=== PATIENT | male | born 2000 | race American Indian/Alaskan Native ===

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

== ENCOUNTER 2019-02-02 22:51 | Emergency (ER) | payer MEDICAID ==
[2019-02-02 23:00] VITALS: BP 136/92
--- NOTE | 2019-02-02 23:20 | EDM.PDOC ---
ED HPI GENERAL MEDICAL PROBLEM - General Chief Complaint: ENT Problem Stated Complaint: THROAT PROBLEMS [id number] Time Seen by Provider: 02/02/19 23:00 Source of Information: Reports: Patient History Limitations: Reports: No Limitations - History of Present Illness INITIAL COMMENTS - FREE TEXT/NARRATIVE: This 18 yo male patient reports to the ED with a sore throat. The patient reports he woke up 2 hours prior to coming to the ED with pain in his throat. the patient reports he is currently on Doxycycline for an abscess (started on 01/27/19). Onset: Today Onset Date: 02/02/19 Onset Time: 21:00 Duration: Constant, Getting Worse Location: Reports: Neck Quality: Reports: Ache, Burning, Sharp, Stabbing Severity: Severe Improves with: Reports: None Worsens with: Reports: None Associated Symptoms: Reports: No Other Symptoms Throat Pain Score (Numeric/FACES): 9 - Related Data Allergies Allergy/AdvReac Type Severity Reaction Status Date / Time No Known Allergies Allergy Verified 02/02/19 22:57 Home Meds: Home Meds Penicillin V Potassium 500 mg PO DAILY 11/06/18 [History] methylPREDNISolone [Methylprednisolone] 4 mg PO DAILY 11/06/18 [History] Past Medical History - Past Health History Medical/Surgical History: Denies Medical/Surgical History HEENT History: Reports: Impaired Vision Other HEENT History: frequent tolsilitis, ENT referral Cardiovascular History: Reports: None Other Respiratory History: collapsed lung at Gastrointestinal History: Reports: None Genitourinary History: Reports: None Other Musculoskeletal History: fracture to right hand Neurological History: Reports: Other (See Below) Psychiatric History: Reports: Addiction, Anxiety, Emotional Problems Endocrine/Metabolic History: Reports: None Hematologic History: Reports: None Immunologic History: Reports: None Oncologic (Cancer) History: Reports: None Dermatologic History: Reports: None - Infectious Disease History Infectious Disease History: Reports: None - Past Surgical History Head Surgeries/Procedures: Reports: None Social & Family History - Family History Family Medical History: Noncontributory - Caffeine Use Caffeine Use: Reports: Coffee, Soda - Living Situation & Occupation Living situation: Reports: with Family ED ROS ENT - Review of Systems Review Of Systems: ROS reveals no pertinent complaints other than HPI. ED EXAM, ENT - Physical Exam Exam: Not Obtained Exam Limited By: No Limitations General Appearance: Alert, WD/WN, Moderate Distress Eye Exam: Bilateral Eye: EOMI, Normal Inspection, PERRL Ears: Normal External Exam, Normal Canal, Hearing Grossly Normal, Normal TMs Nose: Normal Inspection, Normal Mucousa, No Blood Mouth/Throat: Tonsillar Swelling Head: Atraumatic, Normocephalic Neck: Normal Inspection, Supple, Non-Tender, Full Range of Motion Respiratory/Chest: No Respiratory Distress, Lungs Clear, Normal Breath Sounds, No Accessory Muscle Use, Chest Non-Tender Cardiovascular: Normal Peripheral Pulses, Regular Rate, Rhythm, No Edema, No Gallop, No JVD, No Murmur, No Rub (Male) Exam: Deferred Rectal (Males) Exam: Deferred Back: Normal Inspection, Full Range of Motion Extremities: Normal Inspection, Normal Range of Motion, Non-Tender, No Pedal Edema, Normal Capillary Refill Neurological: Alert, Oriented, CN II-XII Intact, Normal Cognition, Normal Gait, Normal Reflexes, No Motor/Sensory Deficits Psychiatric: Normal Affect, Normal Mood Skin: Warm, Dry, Intact, Normal Color, No Rash Lymphatic: No Adenopathy Course - Vital Signs Last Recorded V/S: Last Vital Signs Temp 37.2 C 02/02/19 22:59 Pulse 121 H 02/02/19 22:59 Resp 18 02/02/19 22:59 BP 136/92 H 02/02/19 22:59 Pulse Ox 95 02/02/19 22:59 - Orders/Labs/Meds Orders: Active Orders 24 hr Category Date Time Status COMPREHENSIVE METABOLIC PN,CMP [CHEM] Urgent Lab 02/02/19 23:08 Ordered CULTURE STREP A CONFIRMATION [] Stat Lab 02/02/19 22:58 Results STREP SCRN A RAPID W CULT CONF [] Stat Lab 02/02/19 22:58 Received Labs: Laboratory Tests 02/02/19 Range/Units 23:15 WBC 7.6 (5.0-10.0) 10^3/uL RBC 5.74 (4.6-6.2) 10^6/uL Hgb 16.3 D (14.0-18.0) g/dL Hct 47.2 (40.0-54.0) % MCV 82.2 D (80-100) fL MCH 28.4 (27.0-34.0) pg MCHC 34.5 (33.0-35.0) g/dL Plt Count 358 (150-450) 10^3/uL Neut % (Auto) 64.3 (42.2-75.2) % Lymph % (Auto) 25.6 (20.5-50.1) % [place] % (Auto) 9.2 H (2-8) % Eos % (Auto) 0.5 L (1.0-3.0) % Baso % (Auto) 0.4 (0.0-1.0) % Meds: Medications Discontinued Medications Generic Name Dose Route Start Last Admin Trade Name Freq PRN Reason Stop Dose Admin Penicillin G Procaine/Benzathine 1.2 millunits 02/02/19 23:31 Bicillin C-R 600/600 IM 02/02/19 23:32 ONETIME ONE Departure - Departure Time of Disposition: 23:35 Disposition: Home, Self-Care 01 Condition: Fair Clinical Impression: Acute infective tonsillitis Qualifiers: Pharyngitis/tonsillitis etiology: unspecified etiology Qualified Code(s): J03.90 - Acute tonsillitis, unspecified - Discharge Information *PRESCRIPTION DRUG MONITORING PROGRAM REVIEWED*: Not Applicable *COPY OF PRESCRIPTION DRUG MONITORING REPORT IN PATIENT MOISÉS: Not Applicable Instructions: Tonsillitis, [id number] Forms: ED Department Discharge Care Plan Goals: The patient was advised of the examination and lab results during the visit. The patient was given an injection of Bicillin while in the ED. The patient was discharged with a script for Azithromycin (250 mg) #6 to take 2 by mouth on day 1 and 1 by mouth on days 2-5. The patient should be encouraged to increase their oral fluid intake over the next 48 hours. The patient may continue to use [id number] medications for temporary symptom relief. If the patient has any additional symptoms or concerns, the patient should either return to the emergency department or follow-up with his primary care facility. - My Orders Last 24 Hours: My Active Orders 02/02/19 22:58 CULTURE STREP A CONFIRMATION [RM] Stat STREP SCRN A RAPID W CULT CONF [RM] Stat 02/02/19 23:08 COMPREHENSIVE METABOLIC PN,CMP [CHEM] Urgent - Assessment/Plan Last 24 Hours: My Active Orders 02/02/19 22:58 CULTURE STREP A CONFIRMATION [RM] Stat STREP SCRN A RAPID W CULT CONF [RM] Stat 02/02/19 23:08 COMPREHENSIVE METABOLIC PN,CMP [CHEM] Urgent
[2019-02-02] MEDS ORDERED: Penicillin G Benzathine/Procaine 600-600 1.2 Millunits/2 ML Syringe IM ONE (23:31)
[2019-02-02 23:40] LABS: ANION GAP 17.4; CHLORIDE,CL 102 mmol/L (101-111); SODIUM,NA 138 mmol/L (135-145)
== END 2019-02-03 | disposition home or self-care (01) ==
LOC: DL.ED 22:51
DX: J03.90 Acute tonsillitis, unspecified (principal)
CPT/HCPCS: 36415; 80053; 85025; 87081; 87430; 96372; 99283; J0558

== ENCOUNTER 2019-11-29 20:43 | Emergency (ER) | payer MEDICAID, OTHER ==
[2019-11-29 21:08] VITALS: BP 112/98; PULSE 120
--- NOTE | 2019-11-29 23:31 | EDM.PDOC ---
ED HPI GENERAL MEDICAL PROBLEM - General Chief Complaint: ENT Problem Stated Complaint: SORE THROAT Time Seen by Provider: 11/29/19 21:10 Source of Information: Reports: Patient History Limitations: Reports: No Limitations - History of Present Illness INITIAL COMMENTS - FREE TEXT/NARRATIVE: C/O sore throat x 2 hours. Has not taken anything for pain. some better than when first noticed. Throat Pain Score (Numeric/FACES): 9 - Related Data Allergies Allergy/AdvReac Type Severity Reaction Status Date / Time No Known Allergies Allergy Verified 11/29/19 21:09 Home Meds: Home Meds . [No Known Home Meds] 11/29/19 [History] Past Medical History - Past Health History Medical/Surgical History: Denies Medical/Surgical History HEENT History: Reports: Impaired Vision Other HEENT History: frequent tonsillitis, ENT referral. Was scheled to have his tonsils removed last February, but they had their child and never got it rescheduled. Cardiovascular History: Reports: None Other Respiratory History: collapsed lung at Gastrointestinal History: Reports: None Genitourinary History: Reports: None Other Musculoskeletal History: fracture to right hand Neurological History: Reports: Other (See Below) Psychiatric History: Reports: Addiction, Anxiety, Emotional Problems Endocrine/Metabolic History: Reports: None Hematologic History: Reports: None Immunologic History: Reports: None Oncologic (Cancer) History: Reports: None Dermatologic History: Reports: None - Infectious Disease History Infectious Disease History: Reports: None - Past Surgical History Head Surgeries/Procedures: Reports: None Social & Family History - Family History Family Medical History: Noncontributory - Tobacco Use Smoking Status *Q: Never Smoker Second Hand Smoke Exposure: No - Caffeine Use Caffeine Use: Reports: None Caffeine Use Comment: occassional - Recreational Drug Use Recreational Drug Use: No - Living Situation & Occupation Living situation: Reports: with Family ED ROS ENT - Review of Systems Review Of Systems: Comprehensive ROS is negative, except as noted in HPI. ED EXAM, ENT - Physical Exam Exam: See Below Exam Limited By: No Limitations General Appearance: Alert, Mild Distress Eye Exam: Bilateral Eye: EOMI Ears: Normal External Exam, Normal TMs Nose: Normal Inspection Mouth/Throat: Normal Teeth, Tonsillar Erythema (mild), Tonsillar Swelling (mild) . No: Tonsillar Exudates, Uvular Deviation, Uvular Edema Head: Atraumatic, Normocephalic Neck: Normal Inspection Respiratory/Chest: No Respiratory Distress, Lungs Clear, Normal Breath Sounds Cardiovascular: Normal Peripheral Pulses, Regular Rate, Rhythm GI/Abdominal: Normal Bowel Sounds, Soft, Non-Tender Back: Normal Inspection Extremities: Normal Inspection, Normal Range of Motion Neurological: Alert, Oriented, Normal Cognition Psychiatric: Normal Affect Skin: Warm, Dry, Intact, Normal Color. No: Rash Course - Vital Signs Last Recorded V/S: Last Vital Signs Temp 97.9 F 11/29/19 21:07 Pulse 120 H 11/29/19 21:07 Resp 18 11/29/19 21:07 BP 112/98 H 11/29/19 21:07 Pulse Ox 99 11/29/19 21:07 - Orders/Labs/Meds Orders: Active Orders 24 hr Category Date Time Status CULTURE STREP A CONFIRMATION [RM] Stat Lab 11/29/19 21:05 Results STREP SCRN A RAPID W CULT CONF [] Stat Lab 11/29/19 21:05 Results Departure - Departure Time of Disposition: 23:32 Disposition: Home, Self-Care 01 Condition: Good Clinical Impression: Sore throat - Discharge Information *PRESCRIPTION DRUG MONITORING PROGRAM REVIEWED*: No *COPY OF PRESCRIPTION DRUG MONITORING REPORT IN PATIENT MOISÉS: No Instructions: Sore Throat, [id number] Forms: ED Department Discharge Additional Instructions: alternate tylenol and ibprofen every 4 hours as needed increase fluids humidifier salt water gargles chloraseptic throat spray as needed Sepsis Event Note - Evaluation Sepsis Screening Result: No Definite Risk - Focused Exam Vital Signs: Vital Signs Temp Pulse Resp BP Pulse Ox 11/29/19 21:07 97.9 F 120 H 18 112/98 H 99 Date Exam was Performed: 11/30/19 Time Exam was Performed: 06:43 - My Orders Last 24 Hours: My Active Orders 11/29/19 21:05 CULTURE STREP A CONFIRMATION [RM] Stat STREP SCRN A RAPID W CULT CONF [RM] Stat - Assessment/Plan Last 24 Hours: My Active Orders 11/29/19 21:05 CULTURE STREP A CONFIRMATION [RM] Stat STREP SCRN A RAPID W CULT CONF [RM] Stat
== END 2019-11-29 23:40 | disposition home or self-care (01) ==
LOC: DL.ED 20:43
DX: J02.9 Acute pharyngitis, unspecified (principal)
CPT/HCPCS: 87081; 87430; 99283

== ENCOUNTER 2020-09-25 06:02 | Emergency (ER) | payer MEDICAID ==
[2020-09-25] MEDS ORDERED: LORazepam 2 MG/ML SDV ONE (06:08)
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
[2020-09-25] MEDS ORDERED: LORazepam 2 MG/ML SDV IVPUSH ONE (06:30)
[2020-09-25 06:54] LABS: ANION GAP 21.4 mEq/L (7-13); CHLORIDE,CL 101 mmol/L (98-107); SODIUM,NA 140 mmol/L (136-145)
[2020-09-25] MEDS ORDERED: Midazolam 1 MG/ML 2 ML SDV IVPUSH ONE ×4 (06:57→09:12)
[2020-09-25] MEDS ORDERED: Midazolam 1 MG/ML 2 ML SDV ONE (06:58)
[2020-09-25] MEDS ORDERED: Iopamidol 612 MG/ML 100 ML Bottle IVPUSH ONE (07:05)
[2020-09-25] MEDS ORDERED: Lactated Ringers 1,000 ML IV ONE (07:07)
[2020-09-25] MEDS ORDERED: Diphtheria,Pertussis(Acell),Tetanus Vaccine 0.5 ML Syringe IM ONE (07:14)
[2020-09-25] MEDS ORDERED: Lidocaine 1% 30 ML SDV INJECT ONE (07:15)
[2020-09-25] MEDS ORDERED: ceFAZolin 1 GM in Premix Bag 1 BAG IV ONE (07:15)
[2020-09-25] MEDS ORDERED: Bupivacaine 0.5% 30 ML SDV INFILT ONE (07:16)
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
[2020-09-25] MEDS ORDERED: Lidocaine 1% 30 ML SDV ONE (09:27)
== END 2020-09-25 13:55 | disposition home or self-care (01) ==
LOC: DL.ED 06:02
DX: S21.119A Laceration without foreign body of unspecified front wall of thorax without penetration into thoracic cavity, initial encounter (principal); S41.011A Laceration without foreign body of right shoulder, initial encounter; S41.112A Laceration without foreign body of left upper arm, initial encounter; K70.10 Alcoholic hepatitis without ascites; F10.929 Alcohol use, unspecified with intoxication, unspecified; F15.20 Other stimulant dependence, uncomplicated; X99.1XXA Assault by knife, initial encounter; Y90.7 Blood alcohol level of 200-239 mg/100 ml
CPT/HCPCS: 12002; 12035; 36415; 71260; 74177; 80053; 80305; 80307; 81001; 85025; 90471; 90715; 96365; 96375; 99285; J0690; J2001; J2060; J2250; J3490; J7120; Q9967; 12006

== ENCOUNTER 2021-04-01 18:40 | Emergency (ER) | payer MEDICAID ==
[2021-04-01 18:50] VITALS: BP 115/87; PULSE 113
[2021-04-01] MEDS ORDERED: Lidocaine 1% 30 ML SDV INJECT ONE (19:08)
[2021-04-01] MEDS ORDERED: Bacitracin Oint 1 GM U/D Packet TOP ONE (19:08)
--- NOTE | 2021-04-01 19:09 | EDM.PDOC ---
ED HPI GENERAL MEDICAL PROBLEM - General Chief Complaint: General Stated Complaint: RIGHT LIPS NEED STICHES Time Seen by Provider: 04/01/21 19:05 Source of Information: Reports: Patient, RN, RN Notes Reviewed History Limitations: Reports: No Limitations - History of Present Illness INITIAL COMMENTS - FREE TEXT/NARRATIVE: Farhat is a 21 y/o male who presents to the ED via personal vehicle with complaints of laceration to right upper lip. The patient reports his injury occurred about one hour prior to his arrival to this facility. He states he fell onto a desk; he denies loss of consciousness with this fall. He does not take any blood thinners. He has not taken any medications for this injury. Treatments NEWS CLERK: Reports: Other (see below) Other Treatments NEWS CLERK: Alcohol shots Right Oral/Mouth Pain Score (Numeric/FACES): 6 - Related Data Allergies Allergy/AdvReac Type Severity Reaction Status Date / Time No Known Allergies Allergy Verified 11/29/19 21:09 Home Meds: Home Meds . [No Known Home Meds] 11/29/19 [History] Past Medical History - Past Health History Medical/Surgical History: Denies Medical/Surgical History HEENT History: Reports: Impaired Vision Other HEENT History: frequent tonsillitis, ENT referral. Was scheled to have his tonsils removed last February, but they had their child and never got it rescheduled. Cardiovascular History: Reports: None Other Respiratory History: collapsed lung at Gastrointestinal History: Reports: None Genitourinary History: Reports: None Other Musculoskeletal History: fracture to right hand Neurological History: Reports: Other (See Below) Psychiatric History: Reports: Addiction Endocrine/Metabolic History: Reports: None Hematologic History: Reports: None Immunologic History: Reports: None Oncologic (Cancer) History: Reports: None Dermatologic History: Reports: None - Infectious Disease History Infectious Disease History: Reports: None - Past Surgical History Head Surgeries/Procedures: Reports: None HEENT Surgical History: Reports: None Social & Family History - Family History Family Medical History: No Pertinent Family History - Tobacco Use Tobacco Use Status *Q: Current Every Day Tobacco User Years of Tobacco use: 7 Packs/Tins Daily: 0.5 - Caffeine Use Caffeine Use: Reports: None Caffeine Use Comment: occassional - Alcohol Use Date of Last Drink: 04/01/21 Time of Last Drink: 18:00 - Recreational Drug Use Recreational Drug Use: No - Living Situation & Occupation Living situation: Reports: with Family ED ROS GENERAL - Review of Systems Review Of Systems: Comprehensive ROS is negative, except as noted in HPI. ED EXAM, GENERAL - Physical Exam Exam: See Below Exam Limited By: No Limitations General Appearance: Alert, Anxious Eye Exam: Bilateral Eye: Conjunctival Injection, EOMI, PERRL (4mm) Ears: Normal External Exam, Normal Canal, Hearing Grossly Normal, Normal TMs Ear Exam: Bilateral Ear: Auricle Normal, Canal Normal, TM normal Nose: Normal Inspection, Normal Mucosa, No Blood Throat/Mouth: Normal Teeth, Normal Oropharynx, Normal Voice, No Airway Compromise. No: Normal Lips (1.25cm laceration to right upper lip) Head: Normocephalic, Facial Tenderness (To right upper lip). No: Facial Swelling Neck: Normal Inspection, Supple, Non-Tender, Full Range of Motion. No: Lymphadenopathy (L), Lymphadenopathy (R), Tender Lateral, Tender Midline Respiratory/Chest: No Respiratory Distress, Lungs Clear, Normal Breath Sounds, No Accessory Muscle Use, Chest Non-Tender Cardiovascular: Normal Peripheral Pulses, Regular Rate, Rhythm, No Edema, No Ga llop, No JVD, No Murmur, No Rub Peripheral Pulses: 2+: Radial (L), Radial (R) Extremities: Normal Inspection, Normal Range of Motion, Non-Tender, Normal Capillary Refill, No Pedal Edema Neurological: Alert, Oriented, CN II-XII Intact, Normal Cognition, Normal Gait, Normal Reflexes, No Motor/Sensory Deficits Psychiatric: Normal Affect, Anxious Skin Exam: Warm, Dry, Normal Color, No Rash, Wound/Incision (1.25cm lineral laceration to right upper lip). No: Ecchymosis, Erythema, Jaundice, Mottled, Pallor, Petechiae ED GENERAL MEDICAL PROCEDURES - Laceration/Wound Repair Right Upper Anterior Lateral Mouth Lac/wound length in cm: 1.3 Appearance: Superficial, Linear, Clean Distal NVT: Neuro & Vascular Intact Anesthetic Type: Local Local Anesthesia - Lidocaine (Xylocaine): 1% Plain Local Anesthetic Volume: 5cc Skin Prep: Providone-Iodine (Betadine) Exploration/Debridement/Repair: Wound Explored, In a Bloodless Field, Explored to Base, No Foreign Material Found Closed with: Sutures Suture Size: 4-0 # of Sutures: 4 Suture Type: Prolene Drain Placement: No Sterile Dressing Applied: Provider Tetanus Status Addressed: Yes Complications: No Course - Vital Signs Last Recorded V/S: Last Vital Signs Temp 97.9 F 04/01/21 18:44 Pulse 113 H 04/01/21 18:44 Resp 18 04/01/21 18:44 BP 115/87 04/01/21 18:44 Pulse Ox 98 04/01/21 18:44 - Orders/Labs/Meds Labs: Laboratory Tests 04/01/21 04/01/21 Range/Units 18:56 18:56 Urine Color Yellow (YELLOW) Urine Appearance Clear (CLEAR) Urine pH 6.0 (5.0-9.0) Ur Specific [place] 1.010 (1.005-1.030) Urine Protein Negative (NEGATIVE) Urine Glucose (UA) Negative (NEGATIVE) Urine Ketones Negative (NEGATIVE) Urine Occult Blood Negative (NEGATIVE) Urine Nitrite Negative (NEGATIVE) Urine Bilirubin Negative (NEGATIVE) Urine Urobilinogen 0.2 (0.2-1.0) mg/dL Ur Leukocyte Esterase Negative (NEGATIVE) Urine Opiates Screen Negative (NEGATIVE) Ur Oxycodone Screen Negative (NEGATIVE) Urine Methadone Screen Negative (NEGATIVE) Ur Barbiturates Screen Negative (NEGATIVE) U Tricyclic Antidepress Negative (NEGATIVE) Ur Phencyclidine Scrn Negative (NEGATIVE) Ur Amphetamine Screen Negative (NEGATIVE) U Methamphetamines Scrn Positive H (NEGATIVE) Urine MDMA Screen Negative (NEGATIVE) U Benzodiazepines Scrn Negative (NEGATIVE) Urine Cocaine Screen Negative (NEGATIVE) U Marijuana (THC) Screen Negative (NEGATIVE) Meds: Medications Discontinued Medications Generic Name Dose Route Start Last Admin Trade Name Hector PRN Reason Stop Dose Admin Bacitracin 1 dose 04/01/21 19:08 04/01/21 19:13 Bacitracin Oint 1 Gm U/D Packet TOP 04/01/21 19:09 1 dose ONETIME ONE Administration Lidocaine HCl 30 ml 04/01/21 19:08 04/01/21 19:13 Lidocaine 1% 30 Ml Sdv INJECT 04/01/21 19:09 30 ml ONETIME ONE Administration - Re-Assessments/Exams Free Text/Narrative Re-Assessment/Exam: 04/01/21 Laceration to right upper lip sutured without complication. Reviewed proper wound care as well as removal of sutures in 7 days. Patient verbalized understanding and agreement with the plan of care. Departure - Departure Time of Disposition: 19:25 Disposition: Home, Self-Care 01 Condition: Good Clinical Impression: Laceration of lip without complication Qualifiers: Encounter type: initial encounter Qualified Code(s): S01.511A - Laceration without foreign body of lip, initial encounter - Discharge Information *PRESCRIPTION DRUG MONITORING PROGRAM REVIEWED*: Not Applicable *COPY OF PRESCRIPTION DRUG MONITORING REPORT IN PATIENT MOISÉS: Not Applicable Instructions: Laceration Care, Adult, [id number] Referrals: PCP,None [Primary Care Provider] - Forms: ED Department Discharge Additional Instructions: 1.) Follow up at any primary care facility (clinic) to have sutures removed in 7 days. 2.) Keep sutures clean and dry; you may apply Bactroban twice a day. 3.) Monitor for signs of poor wound healing, including increase in redness, pain, or new drainage that isn't bloody or clear/yellow. Sepsis Event Note (ED) - Evaluation Sepsis Screening Result: No Definite Risk
== END 2021-04-01 19:32 | disposition home or self-care (01) ==
LOC: DL.ED 18:40
DX: S01.511A Laceration without foreign body of lip, initial encounter (principal); Z72.0 Tobacco use; W18.39XA Other fall on same level, initial encounter; W26.8XXA Contact with other sharp object(s), not elsewhere classified, initial encounter
CPT/HCPCS: 12011; 80305-QW; 81003; 99282; 99283-25

== ENCOUNTER 2021-05-17 04:38 | Emergency (ER) | payer MEDICAID ==
[2021-05-17 04:48] VITALS: BP 133/74; PULSE 127
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
== END 2021-05-17 05:13 ==
LOC: DL.ED 04:38
DX: Z72.89 Other problems related to lifestyle (principal)
CPT/HCPCS: 80305-QW; 81003; 99282; 99284

== ENCOUNTER 2022-08-23 04:24 | Emergency (ER) | payer MEDICAID ==
[~2022-08-23 04:24] MED LIST: LORazepam 2 MG/ML SDV IV ONE; LORazepam 2 MG/ML SDV IVPUSH ONE
[2022-08-23] MEDS ORDERED: Sodium Chloride 0.9% 500 ML IV ONE (04:25)
[2022-08-23] MEDS: Iopamidol 612 MG/ML 100 ML Bottle IVPUSH ONE (04:40)
[2022-08-23] MEDS ORDERED: Sodium Chloride 0.9% 1,000 ML IV SCH (05:30)
[2022-08-23 05:48] LABS: ANION GAP 17.6 mEq/L (7-13); CHLORIDE,CL 109 mmol/L (98-107); SODIUM,NA 144 mmol/L (136-145)
[2022-08-23 06:13] LABS: AMPHETAMINES,URINE NEGATIVE (NEGATIVE); BARBITURATES,URINE NEGATIVE (NEGATIVE); BENZODIAZEPINE,URINE NEGATIVE (NEGATIVE); MDMA (ECSTASY), URINE NEGATIVE (NEGATIVE); METHADONE,URINE NEGATIVE (NEGATIVE); METHAMPHETAMINES,URINE NEGATIVE (NEGATIVE); OPIATES,URINE NEGATIVE (NEGATIVE); OXYCODONE,URINE NEGATIVE (NEGATIVE); PHENCYCLIDINE,URINE NEGATIVE (NEGATIVE); TCA,URINE NEGATIVE (NEGATIVE)
[2022-08-23 06:20] LABS: ESTIMATED GFR 128 mL/min (>=60)
== END 2022-08-23 05:39 ==
LOC: DL.ED 04:24
DX: S01.411A Laceration without foreign body of right cheek and temporomandibular area, initial encounter (principal); S41.012A Laceration without foreign body of left shoulder, initial encounter; S81.012A Laceration without foreign body, left knee, initial encounter; Z20.822 Contact with and (suspected) exposure to COVID-19; Y04.0XXA Assault by unarmed brawl or fight, initial encounter
CPT/HCPCS: 12013; 31500; 36415; 43752; 70450; 70487; 71045; 71260; 74177; 80053; 80305-QW; 80307; 81001; 82150; 83690; 85025; 85610; 96361; 96374; 99285; 99285-25; J2060; J7040; Q9967; U0002